=== PATIENT | female | born 1990 | race African-American/Black ===

== ENCOUNTER 2022-01-01 05:18 | Emergency (ER) | payer SELFPAY ==
[~2022-01-01] VITALS: Ht 170.2 cm; Wt 90.6 kg
--- NOTE | 2022-01-01 05:25 | PHYS DOC ---
Past History Past Medical History: Diabetes, Hypertension, Renal Disease, Renal Failure (IGNACIO RODRIGUEZ MD) General Adult HPI: HPI: ".. I ve had severe abdomen pain... after eating a chicken pot pie.. about 2:00 am this morning.. I ve been having more abdomen pain.. and nausea. and vomitin g.. . off and on.. I talked to my kidney doctor at .. she said it probably due to my kidney failure.. and if it got bad go to nearest ER .. because I may need emergent dialysis... ".. " I ve been seeing Dr. Sierra Patiño.. at ..." Patient is a 31 year old female who presents with epigastric abdomen pain, nausea and vomiting. Patient localizes he area pain in epigastric area and rates it 10 out of 10. Patient has been following for all her care at [facility] [place]. Patient has been followed for the past year and a half with nephrology for chronic renal failure eventual placement of Clio-Antonio graft and a dialysis line. Patient is scheduled to be set up for surgical placement in the next 2 or 3 weeks. Patient states her renal failure has been caused by hypertension and diabetes. Patient has had COVID vaccination. Patient has not had flu vaccination. Patient denies any past history of gallbladder disease with your family members. Patient's acute painful episode tonight occurred after eating chicken pot pie.. Patient denies any travel. Patient denies any specific ill contacts. Patient denies any ingestion of bad food. Patient denies any trauma. Patient denies any history of immunosuppression. Patient denies any illicit drug use. (IGNACIO RODRIGUEZ MD) Review of Systems: Review of Systems: Constitutional: Denies fever or chills Eyes: Denies change in visual acuity HENT: Denies nasal congestion or sore throat Respiratory: Denies cough or shortness of breath Cardiovascular: Denies chest pain or edema GI: Complains of epigastric abdominal pain, nausea, vomiting. Denies bloody stools or diarrhea : Denies dysuria Musculoskeletal: Denies back pain or joint pain Integument: Denies rash Neurologic: Denies headache, focal weakness or sensory changes Endocrine: Denies polyuria or polydipsia Lymphatic: Denies swollen glands Psychiatric: Denies depression or anxiety (IGNACIO RODRIGUEZ MD) Family History: Family History: Hypertension diabetes (IGNACIO RODRIGUEZ MD) Current Medications: Current Meds: See nursing for home meds (IGNACIO RODRIGUEZ MD) Allergies: Allergies: No known drug allergies (IGNACIO RODRIGUEZ MD) Physical Exam: PE: Constitutional: In acute distress, non-toxic appearance. [] HENT: Normocephalic, atraumatic, bilateral external ears normal, oropharynx moist, no oral exudates, nose normal. [] Eyes: PERRLA, EOMI, conjunctiva normal, no discharge. [] Neck: Normal range of motion, no tenderness, supple, no stridor. [] Cardiovascular: Tachycardia heart rate regular rhythm, no murmur [] Lungs & Thorax: Bilateral breath sounds equal apex with few basilar crackles on auscultation [] Abdomen: Bowel sounds creased, soft, right upper quadrant and epigastric tenderness, no masses, no pulsatile masses. Rebound pain to epigastric area Skin: Warm, dry, no erythema, no rash. [] Back: No tenderness, no CVA tenderness. [] Extremities: No tenderness, no cyanosis, no clubbing, ROM intact, no edema. No true psoas sign. Neurologic: Alert and oriented X 3, normal motor function, normal sensory function, no focal deficits noted. [] Psychologic: Affect anxious, crying,, judgement normal, mood depressed. (IGNACIO RODRIGUEZ MD) EKG: EKG: [] (IGNACIO RODRIGUEZ MD) EKG: EKG is interpreted at 0612 Rhythm is sinus Rate is 85 bpm [place] is normal QTc 476 ms No STEMI (AMANDA SELLERS DO) Radiology/Procedures: Radiology/Procedures: [] (IGNACIO RODRIGUEZ MD) Radiology/Procedures: IMAGING REPORT Signed PATIENT: BRISSA CORTÉS LACCOUNT: [id number] : 1990 LOCATION: ER AGE: 31 SEX: F EXAM STATUS: REG ER ORD. PHYSICIAN: IGNACIO RODRIGUEZ MD REASON: pain PROCEDURE: ACUTE ABDOMEN SERIES EXAMINATION: Abdominal complete acute radiograph. VIEWS: Single view of the chest and 3 views of the abdomen. COMPARISON: None. INDICATION: 31 years, Female, pain. FINDINGS: Nonobstructive bowel gas pattern. No gross pneumoperitoneum.No abnormal intra- abdominal calcifications. Enlarged cardiomediastinal silhouette. Diffuse roberta ateral perihilar pulmonary reticulations. No focal consolidation, pleural effusion or pneumothorax.No acute osseous process. IMPRESSION: 1. Nonobstructive bowel gas pattern. 2. Cardiomegaly. 3. Diffuse bilateral perihilar pulmonary reticulations, which may reflect edema, or atypical infection. Electronically signed by: Simon Donahue MD (01/01/2022 7:06 AM) [facility] DICTATED AND SIGNED BY: SIMON DONAHUE MD DATE: 01/01/22 0703 CC: AMANDA SELLERS DO; IGNACIO RODRIGUEZ MD; PCP,UNKNOWN ~ IMAGING REPORT Signed PATIENT: BRISSA CORTÉS LACCOUNT: [id number] : 1990 LOCATION: ER AGE: 31 SEX: F EXAM STATUS: REG ER ORD. PHYSICIAN: AMANDA SELLERS DO REASON: abd pain, n/v PROCEDURE: CT ABDOMEN PELVIS WO CONTRAST Exam Date: 01/01/2022 7:[address] ABDOMEN+PELVIS WO Indication: Reason: abd pain, n/v / Spl. Instructions: / History: . TECHNIQUE: CT examination of the abdomen and pelvis was performed without oral or intravenous contrast. One or more of the following dose reduction techniques were utilized: *Automated exposure control (AEC) *Adjustment of mA and/or kV according to patient size *Use of iterative reconstruction technique *CT scan done according to ALARA, or ALARA/IMAGE GENTLY FINDINGS: Motion artifact limits evaluation. The visualized lung bases are clear. The liver, gallbladder, spleen, pancreas, and adrenal glands are normal. The kidneys are normal bilaterally. No hydronephrosis or hydroureter is seen. No urinary tract calculi are seen. Urinary bladder is normal in appearance. There is no bowel obstruction or inflammation. The appendix is normal. No significant atherosclerotic calcifications are seen. No lymphadenopathy is seen. Small within the pelvis is nonspecific, likely physiologic. Osseous structures are intact. IMPRESSION: No evidence of acute intra-abdominal pathology. Normal appearance of the kidneys and bladder. No hydronephrosis or hydroureter. No urinary tract calculi. Electronically signed by: Nidia Zepeda MD (01/01/2022 8:08 AM) [facility] DICTATED AND SIGNED BY: NIDIA ZEPEDA MD DATE: 01/01/22802 CC: MANE SELLERSN Itzel ; PCP,UNKNOWN ~ (AMANDA SELLERS DO) Heart Score: C/O Chest Pain: N/A HEART Score for Chest Pain: HEART Score for Chest Pain Response (Comments) Value History Slighlty/Non-Suspicious 0 ECG Normal 0 Age < 45 0 Risk Factors 1 or 2 Risk Factors 1 Total 1 Risk Factors: Risk Factors: DM, Current or recent (<one month) smoker, HTN, HLP, family history of CAD, obesity. Risk Scores: Score 0 - 3: 2.5% MACE over next 6 weeks - Discharge Home Score 4 - 6: 20.3% MACE over next 6 weeks - Admit for Clinical Observation Score 7 - 10: 72.7% MACE over next 6 weeks - Early Invasive Strategies (IGNACIO RODRIGUEZ MD) C/O Chest Pain: No (AMANDA SELLERS DO) Course & Med Decision Making: Course & Med Decision Making Pertinent Labs and Imaging studies reviewed. (See chart for details) Patient endorsed to at shift change- labs and xrays pending. Impression: 1. Abdomen Paind 2. Nausea and Vomiting 3. Hx. ESRDz- 4. Hx. DM 5. Hx. HTN [] (IGNACIO RODRIGUEZ MD) Course & Med Decision Making This patient was initially seen by Dr. Breaux. Please see his note for details of H&P and HPI. I assumed care at 0600 today. I reviewed imaging studies, laboratory exams. I personally performed my own H&P. The patient admits to having many years worth of dental pain and nausea vomiting symptoms, for which she is seen multiple specialist, including GI, sound like she is had endoscopy multiple times. She reports that "nobody can ever figured out. She admits to marijuana use and has recently ingested THC edibles. She also has end-stage renal disease, she is scheduled to start dialysis at [facility] [place]. She has been following with nephrology services and her primary care doctors there. She is unsure what her baseline creatinine is post to be. I have no basis for comparison, she has had no previous laboratory exams here at this facility. She does still make urine. She denies chest pain or dyspnea. She continues to deny this throughout her ED course. She does not have a fever, she denies previous fevers. She denies lower abdominal pain or pelvic pain. Denies bowel habit changes. She denies hematemesis or projectile vomiting. No previous abdominal surgeries. She has a benign, nonsurgical abdominal exam. Very minimal epigastric tenderness to palpation, without guarding, rebound or rigidity. No lower abdominal tenderness noted. No palpable mass organomegaly noted. She clinically does not appear to be significant dehydrated. She has retched multiple times, with production of very minimal emesis, or no emesis at all. She had been given morphine prior to my arrival. I ordered another dose of morphine, in addition to IV Zofran. She has been given IV fluids. She is ultimately able to tolerate p.o. fluids without difficulty. Troponin is elevated, serial troponin remains essentially the same, she continues to deny chest pain or dyspnea. I have recommended hospitalization/transfer, and she has adamantly refused this. She reports that she needs to go see her family in [facility]. I told her to contact her PCP today or tomorrow for follow-up. I encouraged her to follow-up with nephrology services. I do suspect that her sensitivity troponin levels are elevated secondary to her chronic renal disease. She is hemodynamically stable. She is no longer vomiting, manifest no evidence of acute distress. Affect is somewhat bizarre, she remains intermittently histrionic, in between episodes of snoring and sleeping soundly. I have told her that she may return at anytime, for any reason. She is leaving AGAINST MEDICAL ADVICE, she signed AMA paperwork, she is awake, alert, oriented x3, ambulatory to steady gait, she is her own guardian, she denies being suicidal homicidal, she verbalizes understanding of all risks of leaving, including continued symptoms, acute MD, worsening renal failure, dehydration, disability or . (AMANDA SELLERS DO) Jazmín Disclaimer: Jazmín Disclaimer: This electronic medical record was generated, in whole or in part, using a voice recognition dictation system. (IGNACIO RODRIGUEZ MD) Departure Departure: Impression: Primary Impression: Nausea and vomiting Qualified Codes: R11.2 - Nausea with vomiting, unspecified Additional Impressions: Epigastric abdominal pain Tetrahydrocannabinol (THC) use disorder, mild, abuse End stage renal disease Elevated troponin Disposition: LEFT AGAINST MEDICAL ADVICE Condition: IMPROVED Referrals: PCP,UNKNOWN (PCP) Patient Instructions: End Stage Kidney Disease, Gastritis, Adult, Nausea and Vomiting Additional Instructions: Use the nausea medicine as needed/as directed. Please avoid using THC in all forms, as this is going to cause increased nausea and vomiting and abdominal pain symptoms. Return to the ER for chest pain, shortness of breath, vomiting blood, dehydration, more severe pain, temperature 100.4 or higher or for any other concerns. Please contact your doctors at to discuss this issue further. Scripts Ondansetron (ONDANSETRON ODT) 4 Mg Tab.rapdis 1 TAB PO PRN Q6-8HRS for vomiting, #20 TAB Prov: AMANDA SELLERS DO 01/01/22 IGNACIO RODRIGUEZ MD Jan 01, 2022 05:25 AMANDA SELLERS DO Jan 01, 2022 07:17
[2022-01-01] MEDS ORDERED: ONDANSETRON PF 4 MG/2 ML VIAL. IVP ONE ×2 (05:30→11:00)
[2022-01-01] MEDS ORDERED: IV RINGERS SOLUTION,LACTATED 1,000 ML IV SCH (05:30)
[2022-01-01] MEDS ORDERED: FAMOTIDINE 20 MG/2 ML VIAL IVP ONE (05:30)
[2022-01-01] MEDS ORDERED: MORPHINE SULFATE 10 MG/ML SYRINGE. SQ ONE (05:45)
[2022-01-01] MEDS ORDERED: CALCIUM CHLORIDE 1,000 MG/10 ML DISP.SYRIN IV ONE (05:45)
[2022-01-01] MEDS ORDERED: IPRATRPIUM/ALBUTEROL 0.5/2.5MG 3 ML NEBU. NEB ONE (05:45)
[2022-01-01] MEDS ORDERED: IV NORMAL SALINE 1,000ML 1,000 ML IV ONE (06:00)
--- NOTE | 2022-01-01 06:27 | EKG ---
[address] [address] Test Date: 2022-01-01 Test Time: 05:58:52 Pat Name: BRISSA CORTÉS Department: Room: Gender: F [employer]: : 1990 Requested By: IGNACIO RODRIGUEZ Order Number: [id number] Reading MD: Bryan De La Fuente Measurements Intervals [place] Rate: 85 P: 57 OK: 142 QRS: 54 QRSD: 78 T: 57 QT: 400 QTc: 476 Interpretive Statements SINUS RHYTHM LEFT ATRIAL ABNORMALITY PROLONGED QT ABNORMAL ECG RI6.02 No previous ECG available for comparison Electronically Signed On 01-01-2022 8:58:15 CDT by Bryan De La Fuente
[2022-01-01 06:29] LABS: BASO # 0.1 x10^3/uL (0.0-0.2); BASO % 1 % (0-3); EOS % 0 % (0-3); HEMATOCRIT 27.5 % (36.0-47.0); HEMOGLOBIN 8.4 g/dL (12.0-15.5); LYMPH % 15 % (24-48); MEAN CORPUSCULAR HEMOGLOBIN 23 pg (25-35); MEAN CORPUSCULAR HGB CONC 31 g/dL (31-37); MEAN CORPUSCULAR VOLUME 74 fL (79-100); MONO # 0.2 x10^3/uL (0.0-1.1); MONO % 4 % (0-9); NEUT # 5.3 x10^3uL (1.8-7.7); NEUT % 80 % (31-73); PLATELET COUNT 130 x10^3/uL (140-400); RED BLOOD COUNT 3.73 x10^6/uL (3.50-5.40); RED CELL DISTRIBUTION WIDTH 19.8 % (11.5-14.5); WHITE BLOOD COUNT 6.6 x10^3/uL (4.0-11.0)
[2022-01-01 06:51] LABS: CALCIUM 7.4 mg/dL (8.5-10.1); CREATININE 7.8 mg/dL (0.6-1.0); GFR 7.3; POTASSIUM 4.4 mmol/L (3.5-5.1)
[2022-01-01 06:54] VITALS: BP 188/123
[2022-01-01 06:56] LABS: AMPHETAMINE/METHAMPHETAMINE NEG (NEG); BARBITURATES NEG (NEG); BENZODIAZEPINES NEG (NEG); CANNABINOIDS POS (NEG); COCAINE NEG (NEG); METHADONE NEG (NEG); OPIATES NEG (NEG); PHENCYCLIDINE NEG (NEG)
[2022-01-01 06:57] LABS: ALBUMIN 3.3 g/dL (3.4-5.0); DIRECT BILIRUBIN 0.1 mg/dL (0.0-0.2); TOTAL BILIRUBIN 0.6 mg/dL (0.2-1.0); TOTAL PROTEIN 6.6 g/dL (6.4-8.2)
--- NOTE | 2022-01-01 07:08 | RAD ---
EXAMINATION: Abdominal complete acute radiograph. VIEWS: Single view of the chest and 3 views of the abdomen. COMPARISON: None. INDICATION: 31 years, Female, pain. FINDINGS: Nonobstructive bowel gas pattern. No gross pneumoperitoneum.No abnormal intra-abdominal calcification s. Enlarged cardiomediastinal silhouette. Diffuse bilateral perihilar pulmonary reticulations. No foc al consolidation, pleural effusion or pneumothorax.No acute osseous process. IMPRESSION: 1. Nonobstructive bowel gas pattern. 2. Cardiomegaly. 3. Diffuse bilateral perihilar pulmonary reticulations, which may reflect edema, or atypical infecti on. Electronically signed by: Rin Dnoahue MD (01/01/2022 7:06 AM) [facility]
[2022-01-01 07:11] LABS: BACTERIA,URINE FEW /HPF (0-FEW); CLARITY,URINE CLEAR; COLOR,URINE YELLOW; GLUCOSE,URINE 500 mg/dL (NEG); NITRITE,URINE NEG (NEG); SQUAMOUS EPITHELIAL CELL,UR MANY /LPF; UROBILINOGEN,URINE 0.2 mg/dL (0.2 mg/dL)
[2022-01-01 07:52] LABS: INFLUENZA A PATIENT NEGATIVE (NEGATIVE); INFLUENZA B PATIENT NEGATIVE (NEGATIVE)
--- NOTE | 2022-01-01 08:10 | RAD ---
Exam Date: 01/01/2022 7:[address] ABDOMEN+PELVIS WO Indication: Reason: abd pain, n/v / Spl. Instructions: / History: . TECHNIQUE: CT examination of the abdomen and pelvis was performed without oral or intravenous contra st. One or more of the following dose reduction techniques were utilized: *Automated exposure control (AEC) *Adjustment of mA and/or kV according to patient size *Use of iterative reconstruction technique *CT scan done according to ALARA, or ALARA/IMAGE GENTLY FINDINGS: Motion artifact limits evaluation. The visualized lung bases are clear. The liver, gallbladder, spleen, pancreas, and adrenal glands are normal. The kidneys are normal bilaterally. No hydronephrosis or hydroureter is seen. No urinary tract calc daniel are seen. Urinary bladder is normal in appearance. There is no bowel obstruction or inflammation. The appendix is normal. No significant atherosclerotic calcifications are seen. No lymphadenopathy is seen. Small within th e pelvis is nonspecific, likely physiologic. Osseous structures are intact. IMPRESSION: No evidence of acute intra-abdominal pathology. Normal appearance of the kidneys and bladder. No hydronephrosis or hydroureter. No urinary tract ca lculi. Electronically signed by: Diego Zepeda MD (01/01/2022 8:08 AM) [facility]
[2022-01-01] MEDS ORDERED: MORPHINE SULFATE 4 MG/ML DISP.SYRIN. IV ONE (11:00)
[2022-01-01] MEDS ORDERED: HALOPERIDOL LACT 5 MG/ML VIAL. IM ONE (12:00)
[2022-01-01] MEDS ORDERED: ONDA4TAB12 PO (12:30)
[2022-01-01 13:07] LABS: ANISOCYTOSIS SLIGHT; HYPOCHROMIA MOD; MICROCYTOSIS SLIGHT
[2022-01-01 14:01] LABS: PLT ESTIMATE DECREASED (ADEQUATE)
== END 2022-01-01 12:29 | disposition left against medical advice (07) ==
LOC: ER 05:18
DX: R10.13 Epigastric pain (principal); R11.2 Nausea with vomiting, unspecified; F12.10 Cannabis abuse, uncomplicated; R77.8 Other specified abnormalities of plasma proteins; E11.22 Type 2 diabetes mellitus with diabetic chronic kidney disease; I12.0 Hypertensive chronic kidney disease with stage 5 chronic kidney disease or end stage renal disease; N18.6 End stage renal disease; Z20.822 Contact with and (suspected) exposure to COVID-19; Z99.2 Dependence on renal dialysis
CPT/HCPCS: 36415; 74022; 74176; 80048; 80076; 80307; 81001; 81025; 82150; 82550; 83690; 84484; 85025; 85610; 85730; 87428; 93005; 96361; 96372; 96374; 96375; 96376; 99285; J2060; J2270; J2405; J3490; J7030